=== PATIENT | female | born 1950 | race Caucasian/White ===

== ENCOUNTER 2016-12-27 05:58 | Inpatient (IN) | payer OTHER ==
[~2016-12-27] VITALS: Ht 149.9 cm; Wt 99.8 kg
[2016-12-27] MEDS ORDERED: BUPIVACAINE-MPF/EPI 0.25% 30 ML VIAL INJ ONE (07:44)
[2016-12-27] MEDS ORDERED: ceFAZolin 1,000 MG VIAL ONE (07:44)
[2016-12-27] MEDS ORDERED: BUPIVACAINE-MPF 0.25% 30 ML VIAL INJ ONE (07:59)
[2016-12-27] MEDS ORDERED: fentaNYL 0.05 MG/ML VIAL ONE (08:05)
[2016-12-27] MEDS ORDERED: MIDAZOLAM 2 MG/2 ML VIAL ONE (08:05)
[2016-12-27] MEDS ORDERED: MEPERIDINE 50 MG/ML SYR ONE (08:06)
[2016-12-27] MEDS ORDERED: LACTATED RINGERS 1,000 ML IV SCH (08:49)
[2016-12-27] MEDS ORDERED: ONDANSETRON 4 MG/2 ML VIAL IVP PRN (08:50)
[2016-12-27] MEDS ORDERED: diphenhydrAMINE 50 MG/ML VIAL IVP PRN (08:50)
[2016-12-27] MEDS ORDERED: HYDROmorphone 1 MG/ML AMP IVP PRN ×2 (08:50→10:15)
[2016-12-27] MEDS ORDERED: SUCCINYLCHOLINE CHLORIDE 200 MG/10 ML VIAL IVP ONE (09:50)
[2016-12-27] MEDS ORDERED: PROPOFOL 200 MG/20 ML VIAL IV ONE (09:50)
[2016-12-27] MEDS ORDERED: ROCURONIUM 50 MG/5 ML VIAL IV ONE (09:50)
[2016-12-27] MEDS ORDERED: SEVOFLURANE 250 ML BTL INH ONE (09:50)
[2016-12-27] MEDS ORDERED: ONDANSETRON 4 MG/2 ML VIAL ONE (09:50)
[2016-12-27] MEDS ORDERED: GLYCOPYRROLATE 0.2 MG/ML VIAL ONE (09:50)
[2016-12-27] MEDS ORDERED: DEXAMETHASONE 4 MG/ML VIAL ONE (09:50)
[2016-12-27] MEDS ORDERED: PHENYLEPHRINE 10 MG/ML VIAL ONE (09:50)
[2016-12-27] MEDS: MEPERIDINE 25 MG/ML SYR IVP PRN ×2 (10:00→10:30)
[2016-12-27] MEDS ORDERED: MEPERIDINE 25 MG/ML SYR ONE ×2 (10:05→10:37)
[2016-12-27] MEDS ORDERED: MORPHINE SULFATE 2 MG/ML SYR IVP PRN (10:15)
[2016-12-27] MEDS ORDERED: MORPHINE SULFATE 4 MG/ML SYR IV PRN (10:15)
[2016-12-27] MEDS ORDERED: ONDANSETRON 4 MG/2 ML VIAL IV PRN (10:15)
--- NOTE | 2016-12-27 10:50 | NUR ---
OR NURSES CAME AND BROUGHT PT TO THE UNIT. PT IS ACCOMPANIED BY 2 FAMILY MEMBERS. PT IS STILL VERY DROWSY. PT HAS A FACE MASK WITH O2 AT 6 L. IV ON. CHANGED THE FACE MASK TO A NC PER PT'S REQUEST. PT HAS IV ON R WRIST 20G SL. PT HAS SCD'S ON. PT C/O NAUSEA. GAVE HER VOMIT BAG. PT ALSO WANTED ICE CHIPS D/T DRY MOUTH. PT HAS A DODSON CATH, A TR DRAIN. PT ALSO HAS AN ABD BINDER IN PLACE. FIRST ROUND OF V/S 168/86; 88; 81% ; 97.8F. WILL MONITOR O2 SAT. WILL CONTINUE TO MONITOR VS.
--- NOTE | 2016-12-27 11:45 | NUR ---
DAUGHTER AND FAMILY HAD LEFT. PT IS SLEEPING COMFORTABLY. VS: 11:05 184/89; 88; 93%, AND 97.7F 11:20 167/79; 82; 86%; 97.5F 11:35 174/85; 86; 88%; 97.5F
[2016-12-27 12:00] VITALS: BP 168/86
--- NOTE | 2016-12-27 12:36 | NUR ---
PT SLEEPING SOUNDLY. NC STILL IN PLACE. O2 SAT AT 95%. WILL CONTINUE TO MONITOR PT. Addendum: 12/27/16 at 1242 by Marleni Galarza RN VS: 12:05 97.7F; 168/84; 88; 92% 12:35 97.7F; 167/74; 83; 90%
--- NOTE | 2016-12-27 14:00 | NUR ---
PT SLEEPING. NO SIGNS OF DISTRESS. FAMILY HAD LEFT. WILL CONTINUE TO MONITOR PT.
[2016-12-27 16:00] VITALS: BP 173/83
--- NOTE | 2016-12-27 16:00 | NUR ---
PT JUST WAKING UP. C/O OF BACK ACHE. I REPOSITIONED HER WITH PILLOW TO SIDE LINE. PT DID NOT WANT PAIN MEDS. PT'S DAUGHTER JULY CALLED. PT SPOKE TO HER ON THE PHONE. PT IS RESTING COMFORTABLY. V/S: BP STILL HIGH BUT ALL ELSE IS WITHIN NORMAL RANGE. WILL CONTINUE TO MONITOR.
--- NOTE | 2016-12-27 16:45 | NUR ---
EMPTIED HER PRANAV AZAR: 50ML EMPTIED HER DODSON CATH: 550ML PT'S FAMILY IS BACK. PT IS HAVING SOME PAIN. I WILL MEDICATE HER.
[2016-12-27] MEDS: NACL 0.9% 1,000 ML IV SCH ×2 (16:56→17:54)
--- NOTE | 2016-12-27 17:22 | NUR ---
REPOSITIONED PT TO THE OTHER SIDE. PT IS AWAKE AND VISITING WITH DAUGHTER AND SISTER. THEY ARE LEAVING SO THAT SHE CAN REST. WILL MONITOR PT REGULARLY.
--- NOTE | 2016-12-27 19:20 | NUR ---
ENDORSED PT TO THE YOUTH SERVICES LIBRARIAN NURSE. PT IS IN STABLE CONDITION. SHE IS SOUND ASLEEP. NO SIGNS OF DISTRESS.
--- NOTE | 2016-12-27 19:30 | NUR ---
RECEIVED REPORT FROM JOHANNA NEWBERRY AT BEDSIDE. PT IS ALERT AWAKE ORIENTED X4. TAMAZIGHT-SPEAKING ONLY. INITIAL ASSESSMENT DONE. NO S/S OF RESPIRATORY DISTRESS OR SOB NOTED. NO C/O PAIN OR ANY DISCOMFORT AT THIS TIME. PLAN OF CARE REVIEWED TO PT AND FAMILY AT BEDSIDE AND VERBALIZED UNDERSTANDING AND NEED TO BE REINFORCED. CALL LIGHT WITHIN REACH. WILL CONTINUE TO MONITOR.
[2016-12-27] MEDS: HYDROcodone/APAP 5/325 MG 1 TAB TAB PO PRN (23:12)
[2016-12-28] VITALS: BP 140/69
--- NOTE | 2016-12-28 00:40 | NUR ---
PT IS SLEEPING RIGHT NOW BUT EASILY AROUSABLE. NO S/S OF ANY DISCOMFORT AT THIS TIME. ALL NEEDS ARE ATTENDED. CALL LIGHT WITHIN REACH. WILL CONTINUE TO MONITOR.
[2016-12-28] MEDS: NACL 0.9% 1,000 ML IV SCH ×3 (01:11→16:10)
--- NOTE | 2016-12-28 05:00 | NUR ---
AM CARE RENDERED. BED LINEN CHANGED. REPOSITIONED PATIENT. KEPT CLEAN AND DRY. CALL LIGHT WITHIN REACH. WILL CONTINUE TO MONITOR.
--- NOTE | 2016-12-28 07:25 | NUR ---
PT HAS NO S/S OF ANY DISCOMFORT. PLAN OF CARE ENDORSE TO AM SHIFT NURSE FOR CONTINUITY OF CARE.
--- NOTE | 2016-12-28 07:30 | NUR ---
RECEIVED PT FROM NOC NURSE.PT IS AWAKE, AROUSABLE, TR DRAIN IN PLACE. NOC REPORTED NO AMBULATION YET. GOAL IS FOR THE PATIENT TO WALK TODAY. SIDE RAILS UP CLL LIGHT WITHIN REACH
[2016-12-28 08:00] VITALS: BP 159/77
--- NOTE | 2016-12-28 08:41 | NUR ---
PATIENT HAS BEEN SCREENED AND CATEGORIZED HIGH NUTRITION RISK. PATIENT WILL BE SEEN WITHIN 1-2 DAYS OF ADMISSION. 12/28/16-12/29/[address]
--- NOTE | 2016-12-28 09:30 | NUR ---
PT REFUSED TO WALK AT THIS TIME. REQUESNTED TO SEE PATIENT IN ABOUT HALF AN HOUR. SHE IS AWAKE. CALL LGITH WITHIN REACH. WILL CONTINUE TO MONITOR AND ENCOURAGE PATIENT TO AMBULATE.
--- NOTE | 2016-12-28 10:00 | NUR ---
PATIENT REFUSED LOVENOX. EXPLAINED BENEFITS BUT REFUSED.PT IS ON SCDS.
[2016-12-28] MEDS: ENOXAPARIN 30 MG/0.3 ML SYR SUBQ SCH (10:01)
--- NOTE | 2016-12-28 11:36 | NUR ---
DR PRINGLE VISITED THE APTIENT NOTIFIED RE CURRENT CONDITION AND PT HASNT WALKED SINCE THE PROCEDURE. PER MD. NO NEED TO CHANGE DRESSING FOR TODAY. CONSULT MADE FOR DR BRIONES DUE TO PT HAVE ELEVATED BP . PER PT, " I AHVENT TAKEN MEDS FOR THE LAST [address] DR BRIONES AT THE STATION AND WAS NOTIFIED RE: REFERRA;
--- NOTE | 2016-12-28 12:00 | NUR ---
PATIENT REFUSED TO BE ATTACHED TO THE IV PATIENT GOES TO THE TOILET AND DOESNT WANT TO " TIED UP", EXPLAINED TO DAUGHTER. DAUGHTER AGREED NOT TO BE HOOKLED UP AT THIS TIME. PT ABLE TO CONSUME FOOD. PT WENT TO THE TOILET X 1 THIS AM. WITH USE OF WALKER. PT DAUGHTER STATED PT HAVE WALKER AT HOME.
[2016-12-28] MEDS ORDERED: cloNIDine 0.1 MG TAB PO PRN (12:15)
[2016-12-28] MEDS ORDERED: amLODIPine 5 MG TAB PO SCH (12:33)
--- NOTE | 2016-12-28 13:17 | NUR ---
PT TOLERATED WELL WALKING IN THE HALLWAY WT APPROX 100-150 FEET. DAUGHTER AT THE BEDSIDE. EXPLAINED PLAN, NO PAIN REPORTED
--- NOTE | 2016-12-28 14:01 | NUR ---
CM NOTE INITIAL REVIEW SENT TO [facility] FAX# [phone] PH# FEBRUARY [phone]
--- NOTE | 2016-12-28 15:00 | NUR ---
PT IS IN THE CHAIR RESTING COMFORTABLY.
[2016-12-28 16:00] VITALS: BP 141/68
[2016-12-28] MEDS: HYDROcodone/APAP 5/325 MG 1 TAB TAB PO PRN ×2 (16:10→21:59)
--- NOTE | 2016-12-28 17:14 | NUR ---
WALKED THE PATIENT IN THE HALLWAY WITH AT LEAST 100-150 FT. PT TOLERATED WELL.
--- NOTE | 2016-12-28 18:00 | NUR ---
PT PLACED BACK IN BED. URINATED IN THE TOILET.
--- NOTE | 2016-12-28 19:01 | NUR ---
ROUNDS MADE. PT SLEEPING.
--- NOTE | 2016-12-28 19:36 | NUR ---
ENDORSED TO NOC SHIFT MS WILSON. FOR CONT OF CARE. ALL MEDS GIVEN WITH NO ADVERSE REACTION. PT REMAIN TO REFUSE IVF TO BE CONNECTED. MD IS AWARE. FALL PRECAUTION IMPLEMENTED. CALL LIGHT WITHIN REACH, SIDE RAILS UP. WALKER IN PLACE. PT IS ALERT. BROUGHT TO THE TOILET. IV INTACT.
--- NOTE | 2016-12-28 19:37 | NUR ---
RECD. RESTING IN BED, AWAKE,A/OX4. RESPIRATION EVEN AND UNLABORED. IV SALINE LOCK AT THE LEFT HAND G 20, PATENT AND INTACT. INCISION IN THE ABDOMEN COVERED WITH DRESSING AND ABDOMINAL BINDER, DRY AND INTACT, TR DRAINING SEROSANGUINEOUS FLUID, MODERATE AMOUNT. ENCOURAGED TO ALTERNATELY TURN TO SIDES IN BED. PAIN IN THE SITE 09/27, CLAIMED TOLERABLE. INSTRUCTED TO CALL NURSE WHEN NEEDING HELP ESPECIALLY WHEN GETTING OUT OF BED, VERBALIZED UNDERSTANDING.
--- NOTE | 2016-12-28 20:00 | NUR ---
Patient's Plan of Care was discussed and reviewed with SEAM PRESS OPERATOR: JACKY WILSON
--- NOTE | 2016-12-28 20:30 | NUR ---
ASSISTED OUT OF BED TO GO TO BR TO VOID, SAFETY MAINTAINED.
[2016-12-29] VITALS: BP 139/78
--- NOTE | 2016-12-29 | NUR ---
SLEEPING COMFORTABLY IN BED.
[2016-12-29] MEDS: NACL 0.9% 1,000 ML IV SCH ×2 (00:42→08:24)
--- NOTE | 2016-12-29 04:00 | NUR ---
ASSISTED OUT OF BED TO GO TO BR TO VOID, BACK TO BED AFTER VOIDING. NO BM YET, ENCOURAGED TO AMBULATE MORE IN THE HALLWAY.
--- NOTE | 2016-12-29 06:30 | NUR ---
ABLE TO EMPTY 30 ML SEROSANGUINEOUS FLUID FROM THE TR. REFUSED TO BE CONNECTED TO IV FLUIDS.
--- NOTE | 2016-12-29 06:45 | NUR ---
CONDITION REMAIN STABLE, WILL ENDORSE TO AM NURSE FOR CONTINUITY OF CARE .
--- NOTE | 2016-12-29 07:10 | NUR ---
ASSUMED CONTINUITY OF CARE. NO SIGNS AND SYMPTOMS OF ACUTE DISTRESS NOTED. INITIAL ASSESSMENT DONE. KEEP COMFORTABLE ON BED. EXPLAINED DIAGNOSIS, PLAN OF CARE, POST-OP CARE, PAIN MANAGEMENT TEACHING, USE OF CALL LIGHT/BED/TV/BATHROOM. VERBALIZED UNDERSTANDING. FALL PRECAUTION APPLIED. CALL LIGHT WITHIN REACH.
--- NOTE | 2016-12-29 07:10 | NUR ---
ENDORSED TO GROVER PORTILLO FOR CONTINUITY OF CARE.
--- NOTE | 2016-12-29 07:50 | NUR ---
Patient's Plan of Care was discussed and reviewed with VALVE SETTER:BANDAR
[2016-12-29 08:00] VITALS: BP 155/79
[2016-12-29] MEDS: ENOXAPARIN 30 MG/0.3 ML SYR SUBQ SCH (08:27)
[2016-12-29] MEDS ORDERED: amLODIPine 5 MG TAB PO SCH (09:00)
[2016-12-29] MEDS ORDERED: NORCO 325 MG-51 TAB PO (09:26)
--- NOTE | 2016-12-29 09:40 | NUR ---
CALLED PT. DAUGHTER -ESVINDUTCH SEVILLA AND INFORMED THAT WILL BE D/C PER [address]. PER PT. ANGELES CLEMENTS, SHE WILL COME TO INSURANCE CLAIM AUDITOR PT. LATER.
[2016-12-29 11:15] VITALS: BP 145/79
--- NOTE | 2016-12-29 11:30 | NUR ---
EXPLAINED TO PT. AND PT. DAUGHTER SHAUNA ABOUT MD D/C ORDER, D/C INSTRUCTIONS AND TEACHING, MD D/C PRESCRIPTION LIST EDUCATION, MD FOLLOW-UP, INCISION CARE, PAIN MANAGEMENT TEACHING, DIET, DISEASE MANAGEMENT. PT. AND PT. ANGELES VILLATORO VERBALIZED UNDERSTANDING.
--- NOTE | 2016-12-29 11:41 | NUR ---
CM NOTE CONCURRENT REVIEW SENT TO [facility] FAX# [phone] PH# FEBRUARY [phone]
--- NOTE | 2016-12-29 12:10 | NUR ---
D/C HOME VIA WHEELCHAIR ACCOMPANIED BY PT. DAUGHTER -ANTONIO. AWAKE, ALERT, AND ORIENTED X4. SPEECH CLEAR. NO C/O PAIN. NO SOB, NOTED. IN STABLE CONDITION. INFORMED CHARGE NURSE MARY SZYMANSKI.
== END 2016-12-29 12:10 | disposition home or self-care (01) | DRG 227 ==
LOC: MDS 05:58 → MMU 05:58 → MDS 10:12 → MMU 10:12 → MTU 12-28 23:58
PROVIDERS: ADMIT Surgery; ATTEND Surgery
PROC: 0WUF0JZ Supplement Abdominal Wall with Synthetic Substitute, Open Approach (ICD-10-PCS; principal; 2016-12-27 08:00)
DX: K43.2 Incisional hernia without obstruction or gangrene (principal); N17.9 Acute kidney failure, unspecified; E66.01 Morbid (severe) obesity due to excess calories; I97.3 Postprocedural hypertension; Z68.41 Body mass index [BMI] 40.0-44.9, adult; I10 Essential (primary) hypertension; E78.5 Hyperlipidemia, unspecified; Z90.49 Acquired absence of other specified parts of digestive tract